=== PATIENT | female | born 1940 | race Caucasian/White ===

== ENCOUNTER 2024-10-27 15:17 | Observation (INO) | payer MEDICARE ==
--- NOTE | 2024-10-27 16:09 | ERPHSYRPT ---
- History of Present Illness Time Seen by Provider: 10/27/24 16:23 Source: patient Exam Limitations: no limitations Patient Subjective Stated Complaint: pt was at Dr. Patterson's office due to being SOB for over 2 weeks, pt is supposed to wear oxygen 04/02 and has a cpap, pt has been wearing the cpap with the oxygen and using oxygen prn Triage Nursing Assessment: Pt brought self to the ER, vitals wnl, denies pain, pulses normal, skin n/w/d, gets winded speaking, denies chest pain, no edema noted, doesn't appear to be in any distress Physician History: Patient is an 83-year-old female history of hypertension hypercholesterolemia diabetes [place]'s disease presents to our ED as a referral from her primary care doctor's office for evaluation of progressive shortness of breath over the past 2 weeks. Patient normally wears oxygen at home. She wears CPAP at night. Patient's shortness of breath has gotten significantly worse. No chest pain no nausea vomiting or diaphoresis. Symptoms are mild to moderate in intensity. Symptoms worse with exertion. Symptoms improved with rest. Patient otherwise feels well. She voices no other complaints or concerns at this time. Portions of this note were created with voice recognition technology. There may be grammatical, spelling, punctuation or sound alike errors Timing/Duration: today Activities at Onset: activity Severity of Dyspnea-Max: moderate Severity of Dyspnea-Current: mild Possible Cause: occasional episodes Modifying Factors: Improves With: activity Associated Symptoms: denies symptoms Allergies/Adverse Reactions: acetaminophen [From Darvocet-N] Allergy (Verified 10/27/24 15:43) codeine Allergy (Verified 10/27/24 15:43) lidocaine Allergy (Verified 10/27/24 15:43) meperidine [From Demerol] Allergy (Verified 10/27/24 15:43) pholcodine Allergy (Verified 10/27/24 15:43) propoxyphene [From Darvocet-N] Allergy (Verified 10/27/24 15:43) Home Medications: Albuterol Sulfate 1.25 mg PO QID PRN 10/27/24 [History] Albuterol Sulfate [Albuterol Sulfate Hfa] 2 inh PO Q4HPRN PRN 10/27/24 [History] Ezetimibe 10 mg [Zetia 10 MG] 10 mg PO DAILY 10/27/24 [History] Hydrocortisone 10 mg PO DAILY 10/27/24 [History] Insulin Aspart [NovoLOG Insulin] 0 unit SQ TIDWM 10/27/24 [History] Insulin Degludec [Tresiba Flextouch U-100] 4 unit SQ DAILY 10/27/24 [History] Isosorbide Mononitrate 30 mg [Imdur 30 MG] 30 mg PO DAILY 10/27/24 [History] Levothyroxine Sodium 75 Mcg [Synthroid 75 Mcg] 75 mcg PO DAILY 10/27/24 [History] Losartan Potassium [Cozaar] 25 mg PO DAILY 10/27/24 [History] dilTIAZem HCL [Diltiazem 12Hr ER] 120 mg PO DAILY 10/27/24 [History] Hx Influenza Vaccination/Date Given: Yes Hx Pneumococcal Vaccination/Date Given: Yes Travel Risk - International Travel Have you traveled outside of the country in past 3 weeks: No - Emerging Infectious Disease Are you exhibiting symptoms associated with any current EIDs: Yes Symptoms: Shortness of Breath - Review of Systems Constitutional: No Symptoms, No Fever, No Chills Eyes: No Symptoms Ears, Nose, & Throat: No Symptoms Respiratory: No Symptoms, No Cough, No Dyspnea Cardiac: No Symptoms, No Chest Pain, No Edema, No Syncope Abdominal/Gastrointestinal: No Symptoms, No Abdominal Pain, No Nausea, No Vomiting, No Diarrhea Genitourinary Symptoms: No Symptoms, No Dysuria Musculoskeletal: No Symptoms, No Back Pain, No Neck Pain Skin: No Symptoms, No Rash Neurological: No Symptoms, No Dizziness, No Focal Weakness, No Sensory Changes Psychological: No Symptoms Endocrine: No Symptoms Hematologic/Lymphatic: No Symptoms Immunological/Allergic: No Symptoms All Other Systems: Reviewed and Negative - Past Medical History Pertinent Past Medical History: Yes Cardiac History: High Cholesterol, Hypertension Respiratory History: Bronchitis, COPD, Sleep Apnea Endocrine Medical History: Patrick's Disease, Diabetes Type II, Hypothyroidism - Past Surgical History Past Surgical History: Yes Cardiac: Cardiac Stent Musculoskeletal: Joint Replacement Other Surgical History: vericose veins stripped and done medically, female repair, left hip replacement - Social History Smoking Status: Former smoker Exposure to second hand smoke: Yes Drug Use: none - Social Determinants of Health Will the patient participate in the screening: Yes Do you worry about a steady place to live?: No Do you have any problems with any of the following?: No known problems In the past 12 months,have you had to go without utilities?: No Transportation Issues: No Has anyone in your support network made you feel unsafe?: No Have you or anyone in your house had to go w/o enough food: No - Nursing Vital Signs Nursing Vital Signs: Initial Vital Signs Pulse Rate 79 10/27/24 15:19 Respiratory Rate 19 10/27/24 15:19 Blood Pressure 127/66 10/27/24 15:19 O2 Sat by Pulse Oximetry 93 L 10/27/24 15:19 Pain Scale Pain Intensity 0 - Physical Exam General Appearance: no apparent distress, alert Eye Exam: PERRL/EOMI Ears, Nose, Throat Exam: hearing grossly normal, normal ENT inspection Neck Exam: normal inspection, supple, full range of motion Respiratory Exam: normal breath sounds, diminished breath sounds, rhonchi Cardiovascular/Chest Exam: normal heart sounds, regular rate/rhythm Abdominal/Gastrointestinal Exam: soft, No tenderness, No distention, No mass Extremity Exam: non-tender, normal range of motion, normal inspection, no calf tenderness, no pedal edema Neurologic Exam: alert, oriented x 3, cooperative, mixed crop farmer II-XII nml as tested, sensation nml, No motor deficits Skin Exam: normal color, warm, No dry Lymphatic Exam: No adenopathy SpO2 Interpretation: normal SpO2: 94 O2 Delivery: Room Air - Course Nursing assessment & vital signs reviewed: Yes EKG Interpreted by Me: RATE (74), Sinus Rhythm, NORMAL AXIS, LAFB, NORMAL INTERVALS, NORMAL QRS - CT Exams Chest CT Interpretation: Tele-radiologist Report (No acute findings) Ordered Tests: Active Orders 24 hr Category Date Time Status AMA [Release AMA] OM.NOW Care 10/27/24 19:54 Ordered Cable Installer Repairer Helper STAT Care 10/27/24 15:38 Active EKG-ER Only STAT Care 10/27/24 15:38 Active IV Insertion STAT Care 10/27/24 15:38 Active Pulse Oximetry (ED) STAT Care 10/27/24 15:38 Active CHEST WITH CONTRAST [CT] Stat Exams 10/27/24 16:59 Taken BLOOD CULTURE Stat Lab 10/27/24 16:20 Received CBC W DIFF Stat Lab 10/27/24 16:10 Completed CMP Stat Lab 10/27/24 16:10 Completed CULTURE,URINE Stat Lab 10/27/24 17:26 Received D-DIMER QUANTITATIVE Stat Lab 10/27/24 16:10 Completed NT PRO BNPII Stat Lab 10/27/24 16:10 Completed TROPONIN Q4H Lab 10/27/24 16:10 Completed TROPONIN Q4H Lab 10/27/24 19:10 Completed TROPONIN Q4H Lab 10/27/24 23:45 Ordered UA W/RFX UR CULTURE Stat Lab 10/27/24 17:26 Completed Medication Summary Generic Name Dose Route Start Last Admin Trade Name Freq PRN Reason Stop Dose Admin Ceftriaxone Sodium 1 gm in 100 mls @ 200 mls/hr 10/27/24 19:35 10/27/24 19:46 Rocephin 1 Gm / 100 Ml Nacl IV 10/27/24 20:04 100 mls/hr STAT ONE 100 mls/hr Administration Discontinued Medications Generic Name Dose Route Start Last Admin Trade Name Freq PRN Reason Stop Dose Admin Hydrocortisone 10 mg 10/27/24 19:39 Hydrocortisone 10 Mg Tablet PO 10/27/24 19:40 ONCE STA Ceftriaxone Sodium Confirm 10/27/24 19:44 Rocephin 1 Gm / 100 Ml Nacl Administered 10/27/24 19:45 Dose 1 gm in 100 mls @ ud IV .STK-MED ONE Lab/Rad Data: Laboratory Result Diagrams 10/27/24 16:10 10/27/24 16:10 Laboratory Results 10/27/24 10/27/24 10/27/24 Range/Units 19:10 17:26 16:10 WBC (3.98-10.04) x10^3/uL RBC (3.93-5.22) x10^6/uL Hgb (11.2-15.7) g/dL Hct (34.1-44.9) % MCV (79.4-94.8) fL MCH (25.6-32.2) pg MCHC (32.2-35.5) g/dL RDW (11.7-14.4) % Plt Count (182-369) x10^3/uL MPV (9.4-12.3) fL Gran % (34.0-71.1) % Immature Gran % (Auto) (0.001-0.429) % Nucleat RBC Rel Count (0.00-0.2) % Eos # (Auto) (0.04-0.36) x10^3/uL Immature Gran # (Auto) (0.001-0.031) x10^3u/L Absolute Lymphs (auto) (1.18-3.74) x10^3/uL Absolute Monos (auto) (0.24-0.86) x10^3/uL Absolute Nucleated RBC (0.00-0.012) x10^3u/L Lymphocytes % (19.3-51.7) % Monocytes % (4.7-12.5) % Eosinophils % (0.7-5.8) % Basophils % (0.1-1.2) % Absolute Granulocytes (1.56-6.13) x10^3/uL Basophils # (0.01-0.08) x10^3/uL D-Dimer (0.0-0.50) mg/L Sodium (135-145) mmol/L Potassium (3.5-5.1) mmol/L Chloride (98-107) mmol/L Carbon Dioxide (22-30) mmol/L Anion Gap (5-15) MEQ/L BUN (7-17) mg/dL Creatinine (0.52-1.04) mg/dL Estimated GFR ML/MIN Glucose (74-106) mg/dL Calcium (8.4-10.2) mg/dL Total Bilirubin (0.2-1.3) mg/dL AST (14-36) U/L ALT (0-35) U/L Alkaline Phosphatase (38-126) U/L Troponin I < 0.012 < 0.012 (0.000-0.033) ng/mL NT-Pro-B Natriuret Pep (<300) pg/mL Serum Total Protein (6.3-8.2) g/dL Albumin (3.5-5.0) g/dL Urine Color Dark Yellow A (Yellow) Urine Appearance Clear (Clear) Urine pH 5.0 (4.6-8.0) Ur Specific [place] >=1.030 A (1.005-1.030) Urine Protein 30 (Negative) Urine Glucose (UA) Negative (Negative) mg/dL Urine Ketones 15 A (Negative) Urine Blood Negative (Negative) Urine Nitrite Negative (Negative) Urine Bilirubin Negative (Negative) Urine Urobilinogen 1.0 A (0.2) mg/dL Ur Leukocyte Esterase Small A (Negative) U Hyaline Cast (Auto) 3-5 A (0-2) /LPF Urine Microscopic RBC 3-5 (0-5) /HPF Urine Microscopic WBC 6-10 A (0-5) /HPF Ur Epithelial Cells Rare (None Seen) /HPF Urine Bacteria None Seen (None Seen) /HPF Urine Culture Reflexed YES (NO) 10/27/24 10/27/24 10/27/24 Range/Units 16:10 16:10 16:10 WBC 11.7 H (3.98-10.04) x10^3/uL RBC 5.01 (3.93-5.22) x10^6/uL Hgb 14.1 (11.2-15.7) g/dL Hct 44.3 (34.1-44.9) % MCV 88.4 (79.4-94.8) fL MCH 28.1 (25.6-32.2) pg MCHC 31.8 L (32.2-35.5) g/dL RDW 16.4 H (11.7-14.4) % Plt Count 211 (182-369) x10^3/uL MPV 10.1 (9.4-12.3) fL Gran % 69.1 (34.0-71.1) % Immature Gran % (Auto) 0.6 H (0.001-0.429) % Nucleat RBC Rel Count 0.0 (0.00-0.2) % Eos # (Auto) 0.04 (0.04-0.36) x10^3/uL Immature Gran # (Auto) 0.07 H (0.001-0.031) x10^3u/L Absolute Lymphs (auto) 2.40 (1.18-3.74) x10^3/uL Absolute Monos (auto) 1.03 H (0.24-0.86) x10^3/uL Absolute Nucleated RBC 0.00 (0.00-0.012) x10^3u/L Lymphocytes % 20.5 (19.3-51.7) % Monocytes % 8.8 (4.7-12.5) % Eosinophils % 0.3 L (0.7-5.8) % Basophils % 0.7 (0.1-1.2) % Absolute Granulocytes 8.07 H (1.56-6.13) x10^3/uL Basophils # 0.08 (0.01-0.08) x10^3/uL D-Dimer 3.62 H* (0.0-0.50) mg/L Sodium 137 (135-145) mmol/L Potassium 4.7 (3.5-5.1) mmol/L Chloride 102 (98-107) mmol/L Carbon Dioxide 25 (22-30) mmol/L Anion Gap 14.8 (5-15) MEQ/L BUN 38 H (7-17) mg/dL Creatinine 0.92 (0.52-1.04) mg/dL Estimated GFR 61.8 ML/MIN Glucose 185 H (74-106) mg/dL Calcium 9.3 (8.4-10.2) mg/dL Total Bilirubin 0.50 (0.2-1.3) mg/dL AST 50 H (14-36) U/L ALT 44 H (0-35) U/L Alkaline Phosphatase 61 (38-126) U/L Troponin I (0.000-0.033) ng/mL NT-Pro-B Natriuret Pep 163 (<300) pg/mL Serum Total Protein 6.0 L (6.3-8.2) g/dL Albumin 3.9 (3.5-5.0) g/dL Urine Color (Yellow) Urine Appearance (Clear) Urine pH (4.6-8.0) Ur Specific [place] (1.005-1.030) Urine Protein (Negative) Urine Glucose (UA) (Negative) mg/dL Urine Ketones (Negative) Urine Blood (Negative) Urine Nitrite (Negative) Urine Bilirubin (Negative) Urine Urobilinogen (0.2) mg/dL Ur Leukocyte Esterase (Negative) U Hyaline Cast (Auto) (0-2) /LPF Urine Microscopic RBC (0-5) /HPF Urine Microscopic WBC (0-5) /HPF Ur Epithelial Cells (None Seen) /HPF Urine Bacteria (None Seen) /HPF Urine Culture Reflexed (NO) - Progress Progress: improved Air Movement: good Progress Note: 83-year-old female presents to our ED for evaluation of shortness of breath. Ph ysical exam presenting unremarkable. Pulmonary workup negative. D-dimer positive. CTA chest negative. UA significant for UTI. Patient advised that she has been experiencing increased urinary urgency and frequency. Patient received a dose of Rocephin in our ED. A prescription for Keflex forwarded to patient's pharmacy. At this point we are not sure why patient is experiencing such shortness of breath. We advise hospitalization for further evaluation and treatment. Patient states that she prefers to go home and she does not want to be admitted. Patient will leave AMA. However she agrees to follow-up with her primary care doctor within 48 hours for reevaluation. Patient states she will return to our ED if shortness of breath worsens or if she develops any new or concerning symptoms. Portions of this note were created with voice recognition technology. There may be grammatical, spelling, punctuation or sound alike errors Complexity of problem addressed is moderate acute complicated. No critical care time. Complexity of data reviewed and analyzed is moderate. Test ordered test reviewed results analyzed and correlated clinically with history and physical exam. Risk of complication and or risk of morbidity/mortality of patient management is moderate. A prescription for Keflex forwarded to patient's pharmacy. Vital stable. No social determinants of health present to impede follow-up. Daughter at bedside. She discussed leaving AMA with her mother. In spite of risks they decided to leave AMA. Portions of this note were created with voice recognition technology. There may be grammatical, spelling, punctuation or sound alike errors 10/27/24 19:58 Blood Culture(s) Obtained: Yes Antibiotics given: Yes Counseled pt/family regarding: lab results, diagnosis, rad results - Departure Departure Disposition: AMA Clinical Impression: UTI (urinary tract infection), SOB (shortness of breath) Condition: Stable Critical Care Time: No Referrals: JANNA HARRIS [Primary Care Provider] - Follow up/PCP as directed Additional Instructions: Discharge/Care Plan JUAN SWAIN was seen on 10/27/24 in the Emergency Room. The patient was counseled regarding Diagnosis,Lab results, Imaging studies, need for follow up and when to return to the Emergency Room. Prescriptions given: Discharge Note I have spoken with the patient and/or caregivers. I have explained the patient's condition, diagnosis and treatment plan based on the information available to me at this time. I have answered the patient's and/or caregiver's questions and addressed any concerns. The patient and/or caregivers have as good understanding of the patient's diagnosis, condition and treatment plan as can be expected at this point. The vital signs have been stable. The patient's condition is stable and appropriate for discharge from the emergency department. The patient will pursue further outpatient evaluation with the primary care physician or other designated or consulting physician as outlined in the discharge instructions. The patient and/or caregivers are agreeable to this plan of care and follow-up instructions have been explained in detail. The patient and/or caregivers have received these instruction. The patient/and or caregivers are aware that any significant change in condition or worsening of symptoms should prompt an immediate return to this or the closest emergency department or call 911. Prescriptions: Cephalexin Mh 500 mg [Keflex 500 mg] 500 mg PO TID #21 cap
[2024-10-27 16:31] LABS: Absolute Neutrophil Ct (ANC) 8.07 x10^3/uL (1.56-6.13); BASOPHIL % 0.7 % (0.1-1.2); Basophil (Absolute #) 0.08 x10^3/uL (0.01-0.08); Eosinophil % 0.3 % (0.7-5.8); Eosinophil (Absolute #) 0.04 x10^3/uL (0.04-0.36); Hematocrit 44.3 % (34.1-44.9); Hemoglobin 14.1 g/dL (11.2-15.7); IMMATURE GRAN # 0.07 x10^3u/L (0.001-0.031); IMMATURE GRAN % 0.6 % (0.001-0.429); Lymphocytes % 20.5 % (19.3-51.7); Mean Cell Volume 88.4 fL (79.4-94.8); Mean Corpuscular Hemoglobin 28.1 pg (25.6-32.2); Mean Corpuscular Hgb Concent. 31.8 g/dL (32.2-35.5); Mean Platelet Volume 10.1 fL (9.4-12.3); Monocyte (Absolute #) 1.03 x10^3/uL (0.24-0.86); Monocytes % 8.8 % (4.7-12.5); Neutrophil % 69.1 % (34.0-71.1); Platelet Count 211 x10^3/uL (182-369); Red Blood Count 5.01 x10^6/uL (3.93-5.22); Red Cell Distribution Width 16.4 % (11.7-14.4); White Blood Count 11.7 x10^3/uL (3.98-10.04)
[2024-10-27 16:55] LABS: ALBUMIN 3.9 g/dL (3.5-5.0); ANION GAP 14.8 MEQ/L (5-15); BILIRUBIN,TOTAL 0.5 mg/dL (0.2-1.3); Calcium 9.3 mg/dL (8.4-10.2); Creatinine 1 0.92 mg/dL (0.52-1.04); EST GLOMERULAR FILTRATION RATE 61.8 ML/MIN; Potassium 4.7 mmol/L (3.5-5.1)
[2024-10-27 18:09] LABS: Appearance Clear (Clear); Bacteria None Seen /HPF (None Seen); Bilirubin Negative (Negative); Blood Negative (Negative); Epithelial Cells Rare /HPF (None Seen); Glucose, Urine Negative (Negative); Ketones 15 (Negative); Leukocyte Esterase Small (Negative); Nitrite Negative (Negative); Protein,Urine Dip 30 (Negative); Specific Gravity >=1.030 (1.005-1.030)
[2024-10-27] MEDS ORDERED: ROCEPHIN 1 GM / 100 ML NaCl 1 GM/100 ML IVPB IV ONE (19:44)
[2024-10-27] MEDS: ROCEPHIN 1 GM / 100 ML NaCl 1 GM/100 ML IVPB IV ONE (19:46)
[2024-10-27] MEDS: HYDROCORTISONE PO STA (20:03)
[2024-10-27] MEDS ORDERED: PROVENTIL 2.5 MG/3 ML NEB IH PRN (23:53)
--- NOTE | 2024-10-27 23:56 | PCM.HP ---
History of Present Illness - Chief Complaint Chief Complaint: Shortness of breath Date: 10/27/24 History of Present Illness: 83-year-old woman with history of Patrick's disease, COPD, CAD, HTN, DM2, and hypothyroidism, who presents with dyspnea. Patient was walking to her doctor's office when she became very dyspneic. She notes that in general, she gets short of breath on exertion. Patient is supposed to be on home oxygen 2 L, but she has difficulty caring her concentrator. She has been having right hip pain for the past few weeks, for which she is about to follow-up with rheumatology to evaluate. However, because of the hip pain, she has difficulty carrying her heavy concentrator. As such, she has not been wearing concentrator when she goes out, even though she mostly needs it for exertion and for nocturnal use. She also notes that she feels like she has been getting mixed messages about when to use the oxygen; when she was first given the oxygen the year ago she was told to wear it continuously, but the sleep study people told her only to wear it at [facility]. However, now, she uses a CPAP machine without oxygen at night. She denies chest pain, nausea, diaphoresis. She does have some dysuria that started today. - Review of Systems All Other Systems: Reviewed and Negative Medications & Allergies Home Medications: Home Medication List Albuterol Sulfate 1.25 mg PO QID PRN 10/27/24 [History Confirmed 10/27/24] Albuterol Sulfate [Albuterol Sulfate Hfa] 2 inh PO Q4HPRN PRN 10/27/24 [History Confirmed 10/27/24] Ezetimibe 10 mg [Zetia 10 MG] 10 mg PO DAILY 10/27/24 [History Confirmed 10/27/24] Hydrocortisone 10 mg PO DAILY 10/27/24 [History Confirmed 10/27/24] Insulin Aspart [NovoLOG Insulin] 0 unit SQ TIDWM 10/27/24 [History Confirmed 10/27/24] Insulin Degludec [Tresiba Flextouch U-100] 4 unit SQ DAILY 10/27/24 [History Confirmed 10/27/24] Isosorbide Mononitrate 30 mg [Imdur 30 MG] 30 mg PO DAILY 10/27/24 [History Confirmed 10/27/24] Levothyroxine Sodium 75 Mcg [Synthroid 75 Mcg] 75 mcg PO DAILY 10/27/24 [History Confirmed 10/27/24] Losartan Potassium [Cozaar] 25 mg PO DAILY 10/27/24 [History Confirmed 10/27/24] dilTIAZem HCL [Diltiazem 12Hr ER] 120 mg PO DAILY 10/27/24 [History Confirmed 10/27/24] Allergies/Adverse Reactions: Allergies Allergy/AdvReac Type Severity Reaction Status Date / Time acetaminophen Allergy Verified 10/27/24 15:43 [From Darvocet-N] codeine Allergy Verified 10/27/24 15:43 lidocaine Allergy Verified 10/27/24 15:43 meperidine [From Demerol] Allergy Verified 10/27/24 15:43 pholcodine Allergy Verified 10/27/24 15:43 propoxyphene Allergy Verified 10/27/24 15:43 [From Darvocet-N] - Past Medical History Past Medical History: Yes Neurological History: No Pertinent History ENT History: Cataracts, Macular Degeneration Cardiac History: High Cholesterol, Hypertension Respiratory History: Bronchitis, COPD, Sleep Apnea Endocrine Medical History: Patrick's Disease, Diabetes Type II, Hypothyroidism Musculoskelatal History: Arthritis, Degenerative Disk Disease GI Medical History: No Pertinent History History: No Pertinent History Pyscho-Social History: No Pertinent History Reproductive Disorders: No Pertinent History - Past Surgical History Past Surgical History: Yes Neuro Surgical History: No Pertinent History Cardiac History: Cardiac Stent Respiratory Surgery: No Pertinent History GI Surgical History: No Pertinent History Genitourinary Surgical Hx: No Pertinent History Musculskeletal Surgical Hx: Joint Replacement Female Surgical History: No Pertinent History Other Surgical History: vericose veins stripped and done medically, female repair, left hip replacement, hemroid ectomy Significant Family History: other (copd) - Social History Smoking Status: Former smoker Exposure to second hand smoke: Yes Alcohol: None Drug Use: none - Social Determinants of Health Will the patient participate in the screening: Yes Do you worry about a steady place to live?: No Do you have any problems with any of the following?: No known problems In the past 12 months,have you had to go without utilities?: No Have you or anyone in your house had to go without enough: No Transportation Issues: No Has anyone in your support network made you feel unsafe?: No - Physical Exam Vital Signs: Vital Signs - 24 hr Pulse Resp BP BP Pulse Ox 10/27/24 22:46 93 L 10/27/24 22:00 66 19 167/78 94 L 10/27/24 21:30 65 20 161/72 94 L 10/27/24 21:00 56 L 24 144/69 94 L 10/27/24 20:30 56 L 20 139/70 94 L 10/27/24 20:01 94 L 10/27/24 20:00 56 L 18 147/71 94 L 10/27/24 19:30 58 L 21 130/73 94 L 10/27/24 19:00 59 L 16 154/73 10/27/24 18:31 59 L 20 137/62 94 L 10/27/24 18:00 62 26 H 144/80 10/27/24 17:30 66 22 150/69 94 L 10/27/24 16:30 140/75 10/27/24 16:00 73 18 133/58 94 L 10/27/24 15:52 92 L 10/27/24 15:30 75 23 136/57 93 L 10/27/24 15:25 74 19 127/66 94 L 10/27/24 15:19 79 19 127/66 93 L Physical Exam GEN: Sitting up in bed in no acute distress. HENT: Normocephalic, atraumatic. Moist mucous membranes. EYES: Normal inspection, anicteric sclera, extraocular movements intact. NECK: Supple, full range of motion CV: Regular rate and rhythm, no murmurs, no gallops. No JVD or edema. PULM: Clear to auscultation bilaterally, no work of breathing. On room air. ABD: Nondistended, nontender. MSK: No joint effusions, full range of motion SKIN: No rashes, normal color. NEURO: Face symmetric, no focal motor or sensory deficits. PSYCH: Alert, oriented x 3 Results - Labs Lab/Micro Results: Lab Results-Last 24 Hours 10/27/24 10/27/24 10/27/24 Range/Units 16:10 16:10 16:10 WBC 11.7 H (3.98-10.04) x10^3/uL RBC 5.01 (3.93-5.22) x10^6/uL Hgb 14.1 (11.2-15.7) g/dL Hct 44.3 (34.1-44.9) % MCV 88.4 (79.4-94.8) fL MCH 28.1 (25.6-32.2) pg MCHC 31.8 L (32.2-35.5) g/dL RDW 16.4 H (11.7-14.4) % Plt Count 211 (182-369) x10^3/uL MPV 10.1 (9.4-12.3) fL Gran % 69.1 (34.0-71.1) % Immature Gran % (Auto) 0.6 H (0.001-0.429) % Nucleat RBC Rel Count 0.0 (0.00-0.2) % Eos # (Auto) 0.04 (0.04-0.36) x10^3/uL Immature Gran # (Auto) 0.07 H (0.001-0.031) x10^3u/L Absolute Lymphs (auto) 2.40 (1.18-3.74) x10^3/uL Absolute Monos (auto) 1.03 H (0.24-0.86) x10^3/uL Absolute Nucleated RBC 0.00 (0.00-0.012) x10^3u/L Lymphocytes % 20.5 (19.3-51.7) % Monocytes % 8.8 (4.7-12.5) % Eosinophils % 0.3 L (0.7-5.8) % Basophils % 0.7 (0.1-1.2) % Absolute Granulocytes 8.07 H (1.56-6.13) x10^3/uL Basophils # 0.08 (0.01-0.08) x10^3/uL D-Dimer 3.62 H* (0.0-0.50) mg/L Sodium 137 (135-145) mmol/L Potassium 4.7 (3.5-5.1) mmol/L Chloride 102 (98-107) mmol/L Carbon Dioxide 25 (22-30) mmol/L Anion Gap 14.8 (5-15) MEQ/L BUN 38 H (7-17) mg/dL Creatinine 0.92 (0.52-1.04) mg/dL Estimated GFR 61.8 ML/MIN Glucose 185 H (74-106) mg/dL Calcium 9.3 (8.4-10.2) mg/dL Total Bilirubin 0.50 (0.2-1.3) mg/dL AST 50 H (14-36) U/L ALT 44 H (0-35) U/L Alkaline Phosphatase 61 (38-126) U/L Troponin I (0.000-0.033) ng/mL NT-Pro-B Natriuret Pep 163 (<300) pg/mL Serum Total Protein 6.0 L (6.3-8.2) g/dL Albumin 3.9 (3.5-5.0) g/dL Urine Color (Yellow) Urine Appearance (Clear) Urine pH (4.6-8.0) Ur Specific [place] (1.005-1.030) Urine Protein (Negative) Urine Glucose (UA) (Negative) mg/dL Urine Ketones (Negative) Urine Blood (Negative) Urine Nitrite (Negative) Urine Bilirubin (Negative) Urine Urobilinogen (0.2) mg/dL Ur Leukocyte Esterase (Negative) U Hyaline Cast (Auto) (0-2) /LPF Urine Microscopic RBC (0-5) /HPF Urine Microscopic WBC (0-5) /HPF Ur Epithelial Cells (None Seen) /HPF Urine Bacteria (None Seen) /HPF Urine Culture Reflexed (NO) 10/27/24 10/27/24 10/27/24 Range/Units 16:10 17:26 19:10 WBC (3.98-10.04) x10^3/uL RBC (3.93-5.22) x10^6/uL Hgb (11.2-15.7) g/dL Hct (34.1-44.9) % MCV (79.4-94.8) fL MCH (25.6-32.2) pg MCHC (32.2-35.5) g/dL RDW (11.7-14.4) % Plt Count (182-369) x10^3/uL MPV (9.4-12.3) fL Gran % (34.0-71.1) % Immature Gran % (Auto) (0.001-0.429) % Nucleat RBC Rel Count (0.00-0.2) % Eos # (Auto) (0.04-0.36) x10^3/uL Immature Gran # (Auto) (0.001-0.031) x10^3u/L Absolute Lymphs (auto) (1.18-3.74) x10^3/uL Absolute Monos (auto) (0.24-0.86) x10^3/uL Absolute Nucleated RBC (0.00-0.012) x10^3u/L Lymphocytes % (19.3-51.7) % Monocytes % (4.7-12.5) % Eosinophils % (0.7-5.8) % Basophils % (0.1-1.2) % Absolute Granulocytes (1.56-6.13) x10^3/uL Basophils # (0.01-0.08) x10^3/uL D-Dimer (0.0-0.50) mg/L Sodium (135-145) mmol/L Potassium (3.5-5.1) mmol/L Chloride (98-107) mmol/L Carbon Dioxide (22-30) mmol/L Anion Gap (5-15) MEQ/L BUN (7-17) mg/dL Creatinine (0.52-1.04) mg/dL Estimated GFR ML/MIN Glucose (74-106) mg/dL Calcium (8.4-10.2) mg/dL Total Bilirubin (0.2-1.3) mg/dL AST (14-36) U/L ALT (0-35) U/L Alkaline Phosphatase (38-126) U/L Troponin I < 0.012 < 0.012 (0.000-0.033) ng/mL NT-Pro-B Natriuret Pep (<300) pg/mL Serum Total Protein (6.3-8.2) g/dL Albumin (3.5-5.0) g/dL Urine Color Dark Yellow A (Yellow) Urine Appearance Clear (Clear) Urine pH 5.0 (4.6-8.0) Ur Specific [place] >=1.030 A (1.005-1.030) Urine Protein 30 (Negative) Urine Glucose (UA) Negative (Negative) mg/dL Urine Ketones 15 A (Negative) Urine Blood Negative (Negative) Urine Nitrite Negative (Negative) Urine Bilirubin Negative (Negative) Urine Urobilinogen 1.0 A (0.2) mg/dL Ur Leukocyte Esterase Small A (Negative) U Hyaline Cast (Auto) 3-5 A (0-2) /LPF Urine Microscopic RBC 3-5 (0-5) /HPF Urine Microscopic WBC 6-10 A (0-5) /HPF Ur Epithelial Cells Rare (None Seen) /HPF Urine Bacteria None Seen (None Seen) /HPF Urine Culture Reflexed YES (NO) - Radiology Impressions Radiology Exams & Impressions: Radiology Procedures Category Date Time Status CHEST WITH CONTRAST [CT] Stat Exams 10/27/24 16:59 Taken ECHO W/2D AND DOPPLER [US] Routine Exams 10/27/24 23:[address] chest report not available in EMR, but per ED physician, no PE, no parenchymal disease. Assessment/Plan (1) SOB (shortness of breath) Current Visit: Yes Status: Acute Assessment & Plan: 83-year-old woman with a history of COPD on home oxygen PRN, CAD, DM2, hypothyroidism, HTN, Benzie's disease, here with hypoxia and acute cystitis. ## Hypoxia on exertion, COPD patient has been getting dyspnea on exertion, but there are no acute findings on CTA chest with contrast to suggest lung proximal disease or PE. However, upon further discussion with the patient, notable that she is supposed to be using oxygen at home as needed, but she has not been doing so when she is out of the house because of the difficulty of caring her concentrator with her current hip pain. As well, she has some confusion as to when she is supposed to be wearing the oxygen. However, she has been on oxygen for over a year. With the lack of any acute findings, I suspect that she chronically needs oxygen with exertion. Ambulate patient with oxygen to verify can maintain SpO2 PRN albuterol ## Acute cystitis patient does complain of dysuria, although that has not why she admitted to the hospital. Start Rocephin IV q.24 hours Follow-up urine culture ## Hip pain patient has follow-up with rheumatology to evaluate next week. D escribes pain as radiating from the back down into the leg. She is supposed to get a plain film hip x-ray. Check hip x-ray Follow-up with pain clinic next week ## Type 2 diabetes on insulin at home Continue basal insulin 4 units daily Start low-dose sliding scale insulin Diabetic diet ## Hypertension blood pressure moderately elevated. 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 Code(s): R06.02 - SHORTNESS OF BREATH Telemedicine Encounter - Telemedicine Encounter Telemedicine Encounter: "The entirety of this encounter was performed via Telemedicine" This visit was performed using real-time audio and video connection between my location and thepatients locationwith the assistance of a surrogateat the patients location. Written or verbal consent was obtained from the patient/guardian to [facility]. Any patient questions regarding the telemedicine interaction were answered.
[2024-10-28] MEDS: TYLENOL 325 MG PO PRN (01:04)
[2024-10-28] MEDS: HUMALOG SQ PRN (01:06)
[2024-10-28 04:47] LABS: Hematocrit 42.2 % (34.1-44.9); Hemoglobin 13.5 g/dL (11.2-15.7); Mean Cell Volume 87.2 fL (79.4-94.8); Mean Corpuscular Hemoglobin 27.9 pg (25.6-32.2); Mean Platelet Volume 9.9 fL (9.4-12.3); Platelet Count 191 x10^3/uL (182-369); Red Blood Count 4.84 x10^6/uL (3.93-5.22); White Blood Count 9.4 x10^3/uL (3.98-10.04)
[2024-10-28 05:25] LABS: ANION GAP 10.5 MEQ/L (5-15); Creatinine 1 0.83 mg/dL (0.52-1.04); EST GLOMERULAR FILTRATION RATE 69.9 ML/MIN; Potassium 4.1 mmol/L (3.5-5.1)
[2024-10-28 07:36] VITALS: TEMP 97.6
--- NOTE | 2024-10-28 08:50 | XRAY ---
Indication: Short of breath. Positive d-dimer. Multiple contiguous axial images obtained through the chest using 80 cc Isovue 370 contrast and PE protocol. Comparison: None Good opacification pulmonary arteries. No pulmonary embolus. Heart is not enlarged. Aorta is mildly arteriosclerotic without aneurysm/dissection. A few small right hilar calcified nodes. No pathologic mediastinal/hilar lymphadenopathy. Lungs demonstrates right hemidiaphragm elevation, minimal bibasilar subsegmental atelectasis, and small right middle lobe calcified granuloma. No suspicious pulmonary mass/nodule, infiltrate, or effusion. Bony thorax intact with osteopenia, moderate multilevel degenerative spondylosis, and moderate dextrorotoscoliosis centered at T10. Limited upper abdomen demonstrates 1.1 cm right upper renal cyst. Impression: 1. Negative pulmonary embolus. No acute cardiopulmonary abnormalities. 2. Incidental right hemidiaphragm elevation, bibasilar subsegmental atelectasis, arteriosclerotic disease, chronic bony findings, right renal cyst, and old granulomatous disease.
--- NOTE | 2024-10-28 08:52 | XRAY ---
Indication: Chronic right hip pain. Comparison: None AP pelvis and 2 view right hip demonstrates osteopenia, moderate right hip degenerative arthropathy with greater trochanter spurring, incompletely visualized left hip arthroplasty, moderate lower lumbar degenerative spondylosis with moderate levorotoscoliosis, minimal arteriosclerotic disease, and contrasted urinary bladder from recent CT PE exam. No acute bony, articular, or soft tissue abnormalities.
[2024-10-28] MEDS ORDERED: NON-FORMULARY ITEM (Insulin Degludec [Tresiba Flextouch U-100] 100 UNIT/ML Insuln.Pen) SQ SCH (10:00)
[2024-10-28] MEDS ORDERED: NON-FORMULARY ITEM (Losartan Potassium [Cozaar] 25 MG Tablet) PO SCH (10:00)
[2024-10-28] MEDS ORDERED: DILTIAZEM HCL 120 MG PO SCH (10:00)
[2024-10-28] MEDS: Zetia 10 MG PO SCH (10:04)
[2024-10-28] MEDS: Imdur 30 MG PO SCH (10:04)
[2024-10-28] MEDS: Cardizem CD PO SCH (10:05)
[2024-10-28] MEDS: SYNTHROID 75 MCG PO SCH (10:05)
[2024-10-28] MEDS: Cozaar 50 MG PO SCH (10:05)
[2024-10-28] MEDS: HYDROCORTISONE PO SCH (10:06)
[2024-10-28] MEDS: Lantus Insulin SQ SCH (10:07)
--- NOTE | 2024-10-28 11:04 | PCM.DS ---
Discharge Summary Date of Admission: 10/27/24 22:41 Date of Discharge: 10/28/24 Admitting Physician: LEAH MUÑOZ MD Primary Care Provider: JANNA HARRIS Allergies Allergies acetaminophen [From Darvocet-N] Allergy (Verified 10/27/24 15:43) codeine Allergy (Verified 10/27/24 15:43) lidocaine Allergy (Verified 10/27/24 15:43) meperidine [From Demerol] Allergy (Verified 10/27/24 15:43) pholcodine Allergy (Verified 10/27/24 15:43) propoxyphene [From Darvocet-N] Allergy (Verified 10/27/24 15:43) Hospital Summary - Hospital Course Hospital Course: Ms. Whitman is an 83-year-old woman with a history of COPD on home oxygen, CAD, type 2 diabetes, hypertension, hypothyroidism, and Addisons disease who presented with exertional dyspnea and was found to have hypoxia without evidence of acute pulmonary pathology. Imaging ruled out pulmonary embolism, and symptoms improved with supplemental oxygen. History revealed inconsistent oxygen use due to hip pain and confusion over prior instructions; she was counseled to resume oxygen with exertion and at night as tolerated. She also reported dysuria on admission and was diagnosed with acute cystitis, treated initially with IV ceftriaxone and discharged on oral cefdinir. Hip pain, attributed to chronic musculoskeletal issues, is under evaluation by rheumatology and the pain clinic; X-ray showed no acute findings. She is stable for discharge with follow-up planned. Discharge Note New Diagnosis: UTI New Medications: Cefdinir Follow Up: PCP Results pending: TJ Bermudez spent 35 minutes [id number] with the patient on the day of discharge performing discharge exam, discussing hospital stay and discharge instructions with patient and caregivers, preparation of discharge records, prescriptions & referral forms and addressing any questions/concerns the patient had as documented above. - Vitals & Intake/Output Vital Signs: Vital Signs Temperature 97.6 F 10/28/24 07:35 Pulse Rate 50 L 10/28/24 07:35 Respiratory Rate 14 10/28/24 07:35 Blood Pressure 117/57 10/28/24 07:35 O2 Sat by Pulse Oximetry 94 L 10/28/24 07:35 Intake & Output: Intake & Output 10/25/24 10/26/24 10/27/24 10/28/24 11:59 11:59 11:59 11:59 Intake Total 580 Balance 580 Weight 89 kg - Lab Result Diagrams: 10/28/24 04:20 10/28/24 04:20 Lab Results-Last 24 Hrs: Lab Results-Last 24 Hours 10/27/24 10/27/24 10/27/24 Range/Units 16:10 16:10 16:10 WBC 11.7 H (3.98-10.04) x10^3/uL RBC 5.01 (3.93-5.22) x10^6/uL Hgb 14.1 (11.2-15.7) g/dL Hct 44.3 (34.1-44.9) % MCV 88.4 (79.4-94.8) fL MCH 28.1 (25.6-32.2) pg MCHC 31.8 L (32.2-35.5) g/dL RDW 16.4 H (11.7-14.4) % Plt Count 211 (182-369) x10^3/uL MPV 10.1 (9.4-12.3) fL Gran % 69.1 (34.0-71.1) % Immature Gran % (Auto) 0.6 H (0.001-0.429) % Nucleat RBC Rel Count 0.0 (0.00-0.2) % Eos # (Auto) 0.04 (0.04-0.36) x10^3/uL Immature Gran # (Auto) 0.07 H (0.001-0.031) x10^3u/L Absolute Lymphs (auto) 2.40 (1.18-3.74) x10^3/uL Absolute Monos (auto) 1.03 H (0.24-0.86) x10^3/uL Absolute Nucleated RBC 0.00 (0.00-0.012) x10^3u/L Lymphocytes % 20.5 (19.3-51.7) % Monocytes % 8.8 (4.7-12.5) % Eosinophils % 0.3 L (0.7-5.8) % Basophils % 0.7 (0.1-1.2) % Absolute Granulocytes 8.07 H (1.56-6.13) x10^3/uL Basophils # 0.08 (0.01-0.08) x10^3/uL D-Dimer 3.62 H* (0.0-0.50) mg/L Sodium 137 (135-145) mmol/L Potassium 4.7 (3.5-5.1) mmol/L Chloride 102 (98-107) mmol/L Carbon Dioxide 25 (22-30) mmol/L Anion Gap 14.8 (5-15) MEQ/L BUN 38 H (7-17) mg/dL Creatinine 0.92 (0.52-1.04) mg/dL Estimated GFR 61.8 ML/MIN Glucose 185 H (74-106) mg/dL Calcium 9.3 (8.4-10.2) mg/dL Total Bilirubin 0.50 (0.2-1.3) mg/dL AST 50 H (14-36) U/L ALT 44 H (0-35) U/L Alkaline Phosphatase 61 (38-126) U/L Troponin I (0.000-0.033) ng/mL NT-Pro-B Natriuret Pep 163 (<300) pg/mL Serum Total Protein 6.0 L (6.3-8.2) g/dL Albumin 3.9 (3.5-5.0) g/dL Urine Color (Yellow) Urine Appearance (Clear) Urine pH (4.6-8.0) Ur Specific [place] (1.005-1.030) Urine Protein (Negative) Urine Glucose (UA) (Negative) mg/dL Urine Ketones (Negative) Urine Blood (Negative) Urine Nitrite (Negative) Urine Bilirubin (Negative) Urine Urobilinogen (0.2) mg/dL Ur Leukocyte Esterase (Negative) U Hyaline Cast (Auto) (0-2) /LPF Urine Microscopic RBC (0-5) /HPF Urine Microscopic WBC (0-5) /HPF Ur Epithelial Cells (None Seen) /HPF Urine Bacteria (None Seen) /HPF Urine Culture Reflexed (NO) 10/27/24 10/27/24 10/27/24 Range/Units 16:10 17:26 19:10 WBC (3.98-10.04) x10^3/uL RBC (3.93-5.22) x10^6/uL Hgb (11.2-15.7) g/dL Hct (34.1-44.9) % MCV (79.4-94.8) fL MCH (25.6-32.2) pg MCHC (32.2-35.5) g/dL RDW (11.7-14.4) % Plt Count (182-369) x10^3/uL MPV (9.4-12.3) fL Gran % (34.0-71.1) % Immature Gran % (Auto) (0.001-0.429) % Nucleat RBC Rel Count (0.00-0.2) % Eos # (Auto) (0.04-0.36) x10^3/uL Immature Gran # (Auto) (0.001-0.031) x10^3u/L Absolute Lymphs (auto) (1.18-3.74) x10^3/uL Absolute Monos (auto) (0.24-0.86) x10^3/uL Absolute Nucleated RBC (0.00-0.012) x10^3u/L Lymphocytes % (19.3-51.7) % Monocytes % (4.7-12.5) % Eosinophils % (0.7-5.8) % Basophils % (0.1-1.2) % Absolute Granulocytes (1.56-6.13) x10^3/uL Basophils # (0.01-0.08) x10^3/uL D-Dimer (0.0-0.50) mg/L Sodium (135-145) mmol/L Potassium (3.5-5.1) mmol/L Chloride (98-107) mmol/L Carbon Dioxide (22-30) mmol/L Anion Gap (5-15) MEQ/L BUN (7-17) mg/dL Creatinine (0.52-1.04) mg/dL Estimated GFR ML/MIN Glucose (74-106) mg/dL Calcium (8.4-10.2) mg/dL Total Bilirubin (0.2-1.3) mg/dL AST (14-36) U/L ALT (0-35) U/L Alkaline Phosphatase (38-126) U/L Troponin I < 0.012 < 0.012 (0.000-0.033) ng/mL NT-Pro-B Natriuret Pep (<300) pg/mL Serum Total Protein (6.3-8.2) g/dL Albumin (3.5-5.0) g/dL Urine Color Dark Yellow A (Yellow) Urine Appearance Clear (Clear) Urine pH 5.0 (4.6-8.0) Ur Specific [place] >=1.030 A (1.005-1.030) Urine Protein 30 (Negative) Urine Glucose (UA) Negative (Negative) mg/dL Urine Ketones 15 A (Negative) Urine Blood Negative (Negative) Urine Nitrite Negative (Negative) Urine Bilirubin Negative (Negative) Urine Urobilinogen 1.0 A (0.2) mg/dL Ur Leukocyte Esterase Small A (Negative) U Hyaline Cast (Auto) 3-5 A (0-2) /LPF Urine Microscopic RBC 3-5 (0-5) /HPF Urine Microscopic WBC 6-10 A (0-5) /HPF Ur Epithelial Cells Rare (None Seen) /HPF Urine Bacteria None Seen (None Seen) /HPF Urine Culture Reflexed YES (NO) 10/27/24 10/28/24 10/28/24 Range/Units 23:52 04:20 04:20 WBC 9.4 (3.98-10.04) x10^3/uL RBC 4.84 (3.93-5.22) x10^6/uL Hgb 13.5 (11.2-15.7) g/dL Hct 42.2 (34.1-44.9) % MCV 87.2 (79.4-94.8) fL MCH 27.9 (25.6-32.2) pg MCHC 32.0 L (32.2-35.5) g/dL RDW 16.0 H (11.7-14.4) % Plt Count 191 (182-369) x10^3/uL MPV 9.9 (9.4-12.3) fL Gran % (34.0-71.1) % Immature Gran % (Auto) (0.001-0.429) % Nucleat RBC Rel Count (0.00-0.2) % Eos # (Auto) (0.04-0.36) x10^3/uL Immature Gran # (Auto) (0.001-0.031) x10^3u/L Absolute Lymphs (auto) (1.18-3.74) x10^3/uL Absolute Monos (auto) (0.24-0.86) x10^3/uL Absolute Nucleated RBC (0.00-0.012) x10^3u/L Lymphocytes % (19.3-51.7) % Monocytes % (4.7-12.5) % Eosinophils % (0.7-5.8) % Basophils % (0.1-1.2) % Absolute Granulocytes (1.56-6.13) x10^3/uL Basophils # (0.01-0.08) x10^3/uL D-Dimer (0.0-0.50) mg/L Sodium 136 (135-145) mmol/L Potassium 4.1 (3.5-5.1) mmol/L Chloride 102 (98-107) mmol/L Carbon Dioxide 27 (22-30) mmol/L Anion Gap 10.5 (5-15) MEQ/L BUN 29 H (7-17) mg/dL Creatinine 0.83 (0.52-1.04) mg/dL Estimated GFR 69.9 ML/MIN Glucose 154 H (74-106) mg/dL Calcium 9.0 (8.4-10.2) mg/dL Total Bilirubin (0.2-1.3) mg/dL AST (14-36) U/L ALT (0-35) U/L Alkaline Phosphatase (38-126) U/L Troponin I < 0.012 (0.000-0.033) ng/mL NT-Pro-B Natriuret Pep (<300) pg/mL Serum Total Protein (6.3-8.2) g/dL Albumin (3.5-5.0) g/dL Urine Color (Yellow) Urine Appearance (Clear) Urine pH (4.6-8.0) Ur Specific [place] (1.005-1.030) Urine Protein (Negative) Urine Glucose (UA) (Negative) mg/dL Urine Ketones (Negative) Urine Blood (Negative) Urine Nitrite (Negative) Urine Bilirubin (Negative) Urine Urobilinogen (0.2) mg/dL Ur Leukocyte Esterase (Negative) U Hyaline Cast (Auto) (0-2) /LPF Urine Microscopic RBC (0-5) /HPF Urine Microscopic WBC (0-5) /HPF Ur Epithelial Cells (None Seen) /HPF Urine Bacteria (None Seen) /HPF Urine Culture Reflexed (NO) Micro Results-Entire Visit: Microbiology 10/27/24 17:26 Urine Culture - Preliminary Urine, Void NO GROWTH TO DATE Accuchecks Date 10/28/24 Time 07:32 - Radiology Exams Ordered Rad Exams-Entire Visit: Radiology Procedures Category Date Time Status CHEST WITH CONTRAST [CT] Stat Exams 10/27/24 16:59 Completed HIP UNI (2V) INCL PEL IF DONE Routine Exams 10/28/24 05:55 Completed - Procedures and Test Procedures and Tests throughout Hospitalization: Therapy Orders & Screens 10/28/24 00:38 RT Screen per Nursing Assess ONCE Comment: Protocol Order Physician Instructions: Greater than 3 points order RT Admission Screen Reason For Exam: Triggered on Admission Diagnosis: Shortness of breath Diagnosis: Shortness of breath Pneumonia: No Home O2: Yes Asthma: No CHF: No Home CPAP/BIPAP: Yes Home Nebs/MDI: Yes Total Points: 15 10/28/24 00:46 BiPap/CPAP HS Comment: Diagnosis: Shortness of breath 10/28/24 02:14 Respiratory Therapy Assessment DAILY Comment: Diagnosis: Shortness of breath 10/28/24 02:15 Oxygen Nasal Cannula 2 lpm Comment: Diagnosis: Shortness of breath Discharge Exam General Appearance: no apparent distress Neurologic Exam: alert, oriented x 3, cooperative Eye Exam: PERRL Ears, Nose, Throat Exam: normal ENT inspection Neck Exam: normal inspection Respiratory Exam: normal breath sounds, lungs clear Cardiovascular Exam: regular rate/rhythm, normal heart sounds Gastrointestinal/Abdomen Exam: soft, normal bowel sounds Pelvic Exam: deferred Rectal Exam: deferred Back Exam: normal inspection Extremity Exam: normal inspection Skin Exam: normal color Final Diagnosis/Problem List - Final Discharge Diagnosis/Problem (1) UTI (urinary tract infection) Current Visit: Yes Status: Acute Code(s): N39.0 - URINARY TRACT INFECTION, SITE NOT SPECIFIED (2) Right hip pain Current Visit: Yes Status: Chronic Code(s): M25.551 - PAIN IN RIGHT HIP (3) Type 2 diabetes mellitus Current Visit: Yes Status: Chronic (4) HTN (hypertension) Current Visit: Yes Status: Chronic Code(s): I10 - ESSENTIAL (PRIMARY) HYPERTENSION (5) [place] disease Current Visit: Yes Status: Chronic Code(s): E27.1 - PRIMARY ADRENOCORTICAL INSUFFICIENCY (6) SOB (shortness of breath) Current Visit: Yes Status: Chronic Code(s): R06.02 - SHORTNESS OF BREATH - Discharge Discharge Date: 10/28/24 Disposition: Home, Self-Care Condition: Stable Prescriptions: New Cefdinir [Omnicef 300 mg] 300 mg PO BID 7 Days #14 cap Continue Albuterol Sulfate 1.25 mg PO QID PRN PRN Reason: Shortness Of Breath dilTIAZem HCL [Diltiazem 12Hr ER] 120 mg PO DAILY Isosorbide Mononitrate 30 mg [Imdur 30 MG] 30 mg PO DAILY Ezetimibe 10 mg [Zetia 10 MG] 10 mg PO DAILY Insulin Degludec [Tresiba Flextouch U-100] 4 unit SQ DAILY Levothyroxine Sodium 75 Mcg [Synthroid 75 Mcg] 75 mcg PO DAILY Albuterol Sulfate [Albuterol Sulfate Hfa] 2 inh PO Q4HPRN PRN PRN Reason: Shortness Of Breath Insulin Aspart [NovoLOG Insulin] 0 unit SQ TIDWM Losartan Potassium [Cozaar] 25 mg PO DAILY Hydrocortisone 10 mg PO DAILY Follow up with: JANNA HARRIS [Primary Care Provider] -
[2024-10-28 11:41] VITALS: BP 137/66; PULSE 67; RESP 16; O2SAT 91
[2024-10-28] MEDS ORDERED: ROCEPHIN 1 GM / 100 ML NaCl 1 GM/100 ML IVPB IV SCH (22:00)
== END 2024-10-28 14:35 | disposition home health service (06) ==
LOC: ED 15:17 → MED SURG 22:41
PROVIDERS: ADMIT Internal Medicine; ATTEND Internal Medicine
DX: N39.0 Urinary tract infection, site not specified (principal); R06.02 Shortness of breath; E11.9 Type 2 diabetes mellitus without complications; E27.1 Primary adrenocortical insufficiency; I10 Essential (primary) hypertension; Z99.81 Dependence on supplemental oxygen; Z79.899 Other long term (current) drug therapy; M25.551 Pain in right hip
CPT/HCPCS: 36415; 71260; 73502; 80048; 80053; 81001; 83880; 84484; 85025; 85027; 85379; 87040; 87086; 93005; 93041; 93268; 94660; 94760; 99285; G0378; Q3014; 87077; 87186; J0696; J1817; A9270-GY